=== PATIENT | male | born 1980 ===

== ENCOUNTER 2022-08-20 09:31 | Emergency (ER) | payer OTHER ==
[~2022-08-20] VITALS: Ht 162.6 cm; Wt 78.0 kg
[2022-08-20] MEDS ORDERED: METOCLOPRAMIDE10 MG PO (13:55)
[2022-08-20] MEDS ORDERED: ANTIVERT25 M2 PO (13:55)
== END 2022-08-20 13:59 ==
LOC: ER 09:31
DX: H81.10 Benign paroxysmal vertigo, unspecified ear (principal)